=== PATIENT | female | born 1970 | race Caucasian/White ===

== ENCOUNTER 2016-06-06 23:10 | Emergency (ER) | payer MEDICARE ==
[~2016-06-06] VITALS: Ht 165.1 cm; Wt 77.1 kg
[~2016-06-06 23:10] MED LIST: AMIT100 PO; BUTO10SO; CYCL-36 PO; DIAZ10 PO; LISI30TA44 PO; NOVOLOGP2 SQ; TYLE3 PO; ZOFR4TAB3 SL
[2016-06-06 23:18] VITALS: BP 123/94; PULSE 116; RESP 18; TEMP 98.4; O2SAT 98
--- NOTE | 2016-06-08 13:28 | EKG ---
Date Performed: 06/07/2016 Time Performed: 00:29:28 PTAGE: 46 years EKG: Sinus tachycardia. Poor R wave progression - cannot rule out anteroseptal infarct Since pre vious tracing, no significant change noted Abnormal ECG PREVIOUS TRACING : 02/05/2016 21.48 DOCTOR: Paxton Randall Interpretating Date/Time 06/08/2016 13:27:33
== END 2016-06-07 00:36 | disposition left against medical advice (07) ==
LOC: PHED 23:10
DX: R94.31 Abnormal electrocardiogram [ECG] [EKG] (principal); Z53.21 Procedure and treatment not carried out due to patient leaving prior to being seen by health care provider
CPT/HCPCS: 93005; 99281

== ENCOUNTER 2018-05-01 11:33 | Inpatient (IN) ==
[2018-05-01] MEDS ORDERED: LORazepam 1 MG Tablet PO ONE (12:00)
[2018-05-01] MEDS ORDERED: Lisinopril 5 MG Tablet PO ONE (12:01)
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
[2018-05-01 12:17] LABS: Baso # (Auto) 0.2 th/mm3 (0.0-0.2); Baso % (Auto) 1.5 % (0.0-2.0); Eos % (Auto) 0.2 % (0.0-4.0); Hematocrit 35.4 % (35.0-46.0); Hemoglobin 11.7 gm/dL (11.6-15.3); Lymph # (Auto) 1.8 th/mm3 (1.0-4.8); Lymph % (Auto) 11.3 % (9.0-44.0); Mean Corpuscular Hemoglobin 28.8 pg (27.0-34.0); Mean Corpuscular Volume 87.2 fL (80.0-100.0); Mean Platelet Volume 8.8 fL (7.0-11.0); Mono # (Auto) 0.7 th/mm3 (0.0-0.9); Neut # (Auto) 13.6 th/mm3 (1.8-7.7); Platelet Count 306 th/mm3 (150-450); Red Blood Count 4.06 mil/mm3 (4.00-5.30); White Blood Count 16.3 th/mm3 (4.0-11.0)
[2018-05-01 12:26] LABS: Chloride 101 meq/L (98-107); Potassium 3.3 meq/L (3.5-5.1); Sodium 138 meq/L (136-145)
[2018-05-01 12:29] LABS: Albumin 3.6 g/dL (3.4-5.0); Anion Gap 9 meq/L (5-15); Calcium 8.3 mg/dL (8.5-10.1); Glucose,Random 195 mg/dL (74-106); Magnesium 1.8 mg/dL (1.5-2.5)
[2018-05-01 12:30] LABS: Blood Urea Nitrogen 10 mg/dL (7-18)
[2018-05-01 12:32] LABS: Alanine Aminotransferase 23 U/L (10-53); Aspartate Aminotransferase 39 U/L (15-37); Glomerular Filtration Rate 75 mL/min (>89)
[2018-05-01 12:34] LABS: Total Protein 7.2 g/dL (6.4-8.2)
[2018-05-01 12:35] LABS: Alkaline Phosphatase 79 U/L (45-117)
[2018-05-01] MEDS ORDERED: Acetaminophen/Codeine 300/30 MG Tablet PO ONE (12:37)
[2018-05-01 12:43] LABS: Thyroid Stimulating Hormone 0.277 uIU/mL (0.358-3.740)
[2018-05-01] MEDS ORDERED: Ibuprofen 600 MG Tablet PO ONE (13:40)
[2018-05-01 15:47] LABS: Bilirubin,Urine Negative (Negative); Clarity,Urine Slightly Cloudy (Clear); Color,Urine Yellow (Yellw/Straw); Glucose,Urine (UA) 100 mg/dL (Negative); Leukocyte Esterase,Urine Negative (Negative); Nitrite,Urine Negative (Negative); Urobilinogen,Urine 0.2 mg/dL (Less than 2)
[2018-05-01 15:52] LABS: Collection Time,Urine 1535 hours
[2018-05-01 15:53] LABS: Squamous Epithelial Cell,Urine Greater than 10 /hpf (0-5)
[2018-05-01 15:54] LABS: Amorphous Sediment,Urine Moderate /hpf; Bacteria,Urine Many /hpf
[2018-05-01 16:11] LABS: Amphetamine Screen,Urine Neg (Neg); Barbiturate Screen,Urine Neg (Neg); Cannabinoid Screen,Urine Pos (Neg); Cocaine Screen,Urine Neg (Neg)
[2018-05-01 16:12] LABS: Opiate Screen,Urine Pos (Neg)
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
[2018-05-02] MEDS ORDERED: Aluminum/Magnesium/Simethacone Susp 30 ML UDC PO PRN (10:07)
[2018-05-02] MEDS ORDERED: Melatonin 5 MG Tablet PO PRN (10:07)
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
[2018-05-02] MEDS ORDERED: Dextrose 50% in Water 50 ML Vial IV.PUSH PRN (12:42)
[2018-05-02] MEDS ORDERED: Potassium Chloride 25 MEQ Effervescent Tablet PO ONE (13:00)
[2018-05-02] MEDS: Ibuprofen 400 MG Tablet PO SCH ×2 (13:00→21:50)
[2018-05-02] MEDS: Sertraline 50 MG Tablet PO SCH ×2 (13:00→13:06)
[2018-05-02 14:32] LABS: Hematocrit 37.4 % (35.0-46.0); Hemoglobin 12.1 gm/dL (11.6-15.3); Mean Corpuscular HGB Conc 32.2 % (32.0-36.0); Mean Corpuscular Hemoglobin 29.3 pg (27.0-34.0); Mean Corpuscular Volume 90.9 fL (80.0-100.0); Mean Platelet Volume 8.8 fL (7.0-11.0); Platelet Count 252 th/mm3 (150-450); Red Blood Count 4.12 mil/mm3 (4.00-5.30); Red Cell Distribution Width 15.1 % (11.6-17.2); White Blood Count 10.4 th/mm3 (4.0-11.0)
[2018-05-02] MEDS: Insulin NovoLOG Aspart Correctional Sugar Inj SQ SCH ×2 (17:40→21:48)
[2018-05-02] MEDS: Ciprofloxacin 250 MG Tablet PO SCH (21:49)
[2018-05-02] MEDS: Baclofen 10 MG Tablet PO SCH (21:50)
[2018-05-02] MEDS: Senna/Docusate Sodium 8.6/50 MG Tablet PO SCH (21:50)
[2018-05-03] MEDS: Ibuprofen 400 MG Tablet PO SCH (06:09)
[2018-05-03] MEDS: Sertraline 50 MG Tablet PO SCH (08:11)
[2018-05-03] MEDS: Ciprofloxacin 250 MG Tablet PO SCH (08:11)
[2018-05-03] MEDS: Insulin NovoLOG Aspart Correctional Sugar Inj SQ SCH (08:12)
[2018-05-03] MEDS: Baclofen 10 MG Tablet PO SCH (08:12)
[2018-05-03] MEDS: Senna/Docusate Sodium 8.6/50 MG Tablet PO SCH (08:13)
[2018-05-03] MEDS ORDERED: amLODIPine 5 MG Tablet PO SCH (09:00)
[2018-05-03 09:38] LABS: Calcium 8.3 mg/dL (8.5-10.1); Carbon Dioxide 27.9 meq/L (21.0-32.0)
[2018-05-03 09:42] LABS: Chol/HDL Ratio 3.37 Ratio; Free T4 (Free Thyroxine) 0.82 ng/dL (0.76-1.46); HDL Cholesterol 52.1 mg/dL (40.0-60.0)
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
[2018-05-03 16:11] LABS: Hemoglobin A1c 9.2 % (4.3-6.0)
== END 2018-05-03 11:30 | disposition home or self-care (01) | DRG 882 ==
LOC: PHED 11:33 → NEDA 05-02 10:24 → H260 05-02 11:27
PROVIDERS: ADMIT Psychiatry & Neurology Psychiatry; ATTEND Psychiatry & Neurology Psychiatry
CPT/HCPCS: 80048; 80053; 80061; 80307; 81001; 82948; 82962; 83036; 83735; 84439; 84443; 84703; 85025; 85027; 87086; 99285; J1815; Q0163